=== PATIENT | female | born 1965 ===

== ENCOUNTER 2018-10-01 07:45 | Outpatient (CLI) | payer OTHER ==
[~2018-10-01] VITALS: Ht 157.5 cm; Wt 59.0 kg
[2018-10-01] MEDS ORDERED: FLONASE16 GM NASAL (13:01)
== END 2018-10-01 08:00 | disposition home or self-care (01) ==
LOC: OFIC 805 07:45
DX: H69.91 Unspecified Eustachian tube disorder, right ear (principal); J31.0 Chronic rhinitis; J03.90 Acute tonsillitis, unspecified